=== PATIENT | female | born 1955 | race Caucasian/White ===

== ENCOUNTER 2018-10-28 07:18 | Emergency (ER) | payer OTHER ==
[~2018-10-28] VITALS: Ht 162.6 cm; Wt 69.4 kg
[~2018-10-28 07:18] MED LIST: ACIDOPHILUS1 EAC1 PO; COMBIVENT RESPIM4 GM INH; DULERA 200 MCG/13 GM INH; GUAI600T33 PO; LEVOFLOXACIN750 MG PO; LEVSOD88 PO; PRED20 PO
[2018-10-28] MEDS ORDERED: METCAR500 PO (10:06)
[2018-10-28] MEDS ORDERED: HYDR1TAB94 PO (10:06)
[2018-10-28] MEDS ORDERED: NAPR550 PO (10:06)
== END 2018-10-28 10:16 | disposition home or self-care (01) ==
LOC: ER 07:18
DX: M54.5 Low back pain (principal); Z88.8 Allergy status to other drugs, medicaments and biological substances; Z87.891 Personal history of nicotine dependence
CPT/HCPCS: 71046; 72100; 96372; 99283-25; J1885

== ENCOUNTER 2023-05-07 17:56 | Emergency (ER) | payer OTHER ==
[~2023-05-07] VITALS: Ht 162.6 cm; Wt 76.2 kg
[~2023-05-07 17:56] MED LIST changes: +HYDR1TAB94 PO; +METCAR500 PO; +NAPR550 PO
[2023-05-07] MEDS ORDERED: Roxicodone5 MG PO (19:30)
[2023-05-07] MEDS ORDERED: Cyclobenzaprine5 MG PO (19:30)
[2023-05-07 19:45] VITALS: BP 143/86
== END 2023-05-07 19:51 | disposition home or self-care (01) ==
LOC: ER 17:56
DX: S70.11XA Contusion of right thigh, initial encounter (principal); Z88.8 Allergy status to other drugs, medicaments and biological substances; Z91.018 Allergy to other foods; Z87.891 Personal history of nicotine dependence; W10.9XXA Fall (on) (from) unspecified stairs and steps, initial encounter
CPT/HCPCS: 73502; 96374; 99283-25; J1885

== ENCOUNTER 2024-03-07 11:47 | Emergency (ER) | payer OTHER ==
[~2024-03-07] VITALS: Ht 162.6 cm; Wt 76.2 kg
[~2024-03-07 11:47] MED LIST changes: +Cyclobenzaprine5 MG PO; +Roxicodone5 MG PO
[2024-03-07] MEDS ORDERED: Acetaminophen 500 MG Tab PO ONE ×2 (11:55→15:45)
[2024-03-07] MEDS ORDERED: Ibuprofen 400 MG Tab PO ONE ×2 (11:55→15:45)
[2024-03-07] MEDS ORDERED: OxyCODONE HCL 5 MG TAB PO ONE (11:55)
[2024-03-07] MEDS ORDERED: BREZTRI AEROS10.7 GM IH (12:26)
[2024-03-07] MEDS ORDERED: ESTRADIOL42.5 GM VG (12:27)
[2024-03-07 13:50] VITALS: BP 147/73
[2024-03-07] MEDS ORDERED: MELO7.5 PO (13:51)
[2024-03-07] MEDS ORDERED: OXAYDO5 M1 PO (15:10)
== END 2024-03-07 15:57 | disposition home or self-care (01) ==
LOC: ER 11:47
DX: S82.852A Displaced trimalleolar fracture of left lower leg, initial encounter for closed fracture (principal); X50.1XXA Overexertion from prolonged static or awkward postures, initial encounter; Z88.8 Allergy status to other drugs, medicaments and biological substances; Z79.899 Other long term (current) drug therapy; E03.9 Hypothyroidism, unspecified; J44.9 Chronic obstructive pulmonary disease, unspecified; M19.90 Unspecified osteoarthritis, unspecified site; F17.210 Nicotine dependence, cigarettes, uncomplicated
CPT/HCPCS: 73610; 73630; A9270